=== PATIENT | female | born 1995 | race Two or more races ===

== ENCOUNTER 2019-06-25 03:53 | Emergency (ER) | payer OTHER ==
[~2019-06-25] VITALS: Ht 165.1 cm; Wt 62.6 kg
[2019-06-25 04:14] VITALS: BP 130/84
[2019-06-25 04:35] LABS: INFLUENZA A PATIENT NEGATIVE (NEGATIVE)
[2019-06-25 04:37] LABS: INFLUENZA B PATIENT POSITIVE (NEGATIVE)
[2019-06-25] MEDS ORDERED: OSEL75CA PO (04:46)
--- NOTE | 2019-06-25 04:46 | PHYS DOC ---
Past Medical History Past Medical History: No Pertinent History Past Surgical History: Other Additional Past Surgical Histo: CLEFT PALATE Alcohol Use: Occasionally Drug Use: None Adult General Chief Complaint Chief Complaint: FLU SYMPTOM HPI HPI Patient is a 24 year old female who presented to ER today for evaluation of fever and chill, nasal congestion, cough, sore throat, flulike symptom for 2 days. She says her boyfriend was tested positive for influenza, he had been on Tamiflu. Patient denies any abdominal pain, no nausea vomiting. All other ROS is negative unless otherwise noted in HPI Review of Systems Review of Systems See above Current Medications Current Medications Current Medications Medications (Trade) Dose Ordered Sig/Almita Start Time Stop Time Status Last Admin Dose Admin Acetaminophen (Tylenol) 1,000 mg 1X ONCE 06/25/19 05:00 06/25/19 04:53 DC Allergies Allergies Allergies Coded Allergies Type Severity Reaction Last Updated Verified No Known Drug Allergies 06/25/19 No Physical Exam Physical Exam See above Constitutional: Well developed, well nourished, no acute distress, non-toxic appearance. [] HENT: Normocephalic, atraumatic, bilateral external ears normal, oropharyngeal area is erythematous, no exudation. Nasal nare with edema and clear drainage. Eyes: PERRLA, EOMI, conjunctiva normal, no discharge. [] Neck: Normal range of motion, no tenderness, supple, no stridor. [] Cardiovascular:Heart rate regular rhythm, no murmur [] Lungs & Thorax: Bilateral breath sounds clear to auscultation [] Abdomen: Bowel sounds normal, soft, no tenderness, no masses, no pulsatile masses. [] Skin: Warm, dry, no erythema, no rash. [] Back: No tenderness, no CVA tenderness. [] Extremities: No tenderness, no cyanosis, no clubbing, ROM intact, no edema. [] Neurologic: Alert and oriented X 3, normal motor function, normal sensory function, no focal deficits noted. [] Psychologic: Affect normal, judgement normal, mood normal. [] Current Patient Data Vital Signs Vital Signs Date Time Temp Pulse Resp B/P (MAP) Pulse Ox O2 Delivery O2 Flow Rate FiO2 06/25/19 04:14 98.3 92 16 130/84 (99) Room Air 97.0 98.3 Lab Values Laboratory Tests Test 06/25/19 04:12 Influenza Type A Antigen Negative (NEGATIVE) Influenza Type B Antigen Positive (NEGATIVE) EKG EKG [] Radiology/Procedures Radiology/Procedures [][facility] [address] [place] [address] IMAGING REPORT Signed PATIENT: CABRERA ADAMES ACCOUNT: [id number] : 1995 LOCATION: ER AGE: 24 SEX: F EXAM STATUS: DEP ER ORD. PHYSICIAN: LINDA AGUIAR DO REASON: cough, fever for 3 days PROCEDURE: CHEST PA & LATERAL PA and lateral chest x-ray HISTORY: Cough and fever. FINDINGS: Heart size normal. Mediastinal silhouette is normal. No pneumothorax, pulmonary opacities or pleural effusions. Bones are unremarkable. IMPRESSION: No acute process. Electronically signed by: Mariaa Ritchie MD (06/25/2019 4:56 AM) [facility] DICTATED and SIGNED BY: MARIAA RITCHIE MD DATE: 06/25/19 0456 Course & Med Decision Making Course & Med Decision Making Pertinent Labs and Imaging studies reviewed. (See chart for details) [] Dragon Disclaimer Dragon Disclaimer This electronic medical record was generated, in whole or in part, using a voice recognition dictation system. Departure Departure Impression: Primary Impression: Influenza B Disposition: 01 HOME, SELF-CARE Condition: STABLE Referrals: NO PCP (PCP) follow up with your doctor as needed Patient Instructions: Influenza, Adult Scripts Oseltamivir Phosphate (TAMIFLU) 75 Mg Capsule 1 CAP PO BID, #10 CAP Prov: LINDA AGUIAR DO 06/25/19 LINDA AGUIAR DO Jun 25, 2019 04:46
[2019-06-25] MEDS: ACETAMINOPHEN 500 MG TABLET PO ONE (04:47)
--- NOTE | 2019-06-25 04:59 | RAD ---
PA and lateral chest x-ray HISTORY: Cough and fever. FINDINGS: Heart size normal. Mediastinal silhouette is normal. No pneumothorax, pulmonary opacities or pleural effusions. Bones are unremarkable. IMPRESSION: No acute process. Electronically signed by: Abdulaziz Ritchie MD (06/25/2019 4:56 AM) [id number]
== END 2019-06-25 04:52 | disposition home or self-care (01) ==
LOC: ER 03:53
DX: J10.1 Influenza due to other identified influenza virus with other respiratory manifestations (principal)
CPT/HCPCS: 71046; 87804; 99285-25